=== PATIENT | male | born 1975 | race Caucasian/White ===

== ENCOUNTER 2017-08-14 19:02 | Emergency (ER) | payer SELFPAY ==
[~2017-08-14] VITALS: Ht 188 cm; Wt 85.5 kg
[2017-08-14] VITALS (7 sets, daily range): BP systolic 126–149; BP diastolic 66–94; PULSE 71–75; RESP 18–20; TEMP 98.9; O2SAT 98–100
[2017-08-14] MEDS ORDERED: SODIUM CHLORIDE 0.9% FLUSH 10 ML FLUSH IVF PRN (19:30)
--- NOTE | 2017-08-14 19:35 | PD ---
HPI Chief Complaint: Chest Pain Time Seen by Provider: 19:15 Travel History International Travel<30 days: No Contact w/Intl Traveler<30days: No Traveled to known affect area: No History of Present Illness HPI Patient is a 42 year old male with history of CAD with 1 cardiac stent, presents to the ER with c/o of chest pain. Patient reports that chest pain began 5 days ago and felt like a sharp/stabbing constant sensation to his chest. Reports that pain is left sided and pleuritic in nature. Patient reports that pain is worse with taking deep breaths. 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 Reports that he went to go lift a ladder out of his truck today when all of a sudden began to have worsening pain. Patient reports that the pain was similar to when he had a MA 5 years ago in [place] and had 1 stent placed. reports that the pain today was similar to when he had his stent placed. Patient reports that he is supposed to be taking Plavix as well as aspirin, patient reports that he has not taken Plavix in a while as he had run out of the medication. Patient reports that he just moved to the area one month ago, does not have an established pickling solution maker here. Patient denies history of hypertension or hyperlipidemia, reports that he only takes a baby aspirin per day and no other medications. Patient is a smoker, patient reports that he is a strong family history of coronary artery disease. Patient denies history of PE or DVT, he did drive from [place] to [place] 1 month ago. PFSH Past Medical History Coronary Artery Disease: Yes Diminished Hearing: No Tetanus Vaccination: Unknown Influenza Vaccination: No Past Surgical History Coronary Stent: Yes Social History Alcohol Use: No Tobacco Use: Yes Substance Use: No Allergies-Medications (Allergen,Severity, Reaction): Coded Allergies: No Known Allergies (Verified Allergy, Unknown, 08/14/17) Reported Meds & Prescriptions Reported Meds & Active Scripts Active No Active Prescriptions or Reported Medications Review of Systems General / Constitutional: No: Fever, Chills Eyes: No: Visual changes HENT: No: Headaches Cardiovascular: Positive: Chest Pain or Discomfort, No: Tachycardia, Diaphoresis, Syncope Respiratory: Positive: Shortness of Breath, No: Wheezing Gastrointestinal: No: Abdominal Pain Genitourinary: No: Dysuria Musculoskeletal: No: Pain Skin: No Rash Neurologic: No: Weakness Psychiatric: No: Depression Endocrine: No: Polydipsia Hematologic/Lymphatic: No: Easy Bruising Physical Exam Narrative GENERAL: Moderate distress SKIN: Focused skin assessment warm/dry. HEAD: Atraumatic. Normocephalic. EYES: Pupils equal and round. No scleral icterus. No injection or drainage. ENT: No nasal bleeding or discharge. Mucous membranes pink and moist. NECK: Trachea midline. No JVD. CARDIOVASCULAR: Regular rate and rhythm. No murmur appreciated. RESPIRATORY: No accessory muscle use. Clear to auscultation. Breath sounds equal bilaterally. GASTROINTESTINAL: Abdomen soft, non-tender, nondistended. Hepatic and splenic margins not palpable. MUSCULOSKELETAL: No obvious deformities. No clubbing. No cyanosis. No edema. NEUROLOGICAL: Awake and alert. No obvious cranial nerve deficits. Motor grossly within normal limits. Normal speech. PSYCHIATRIC: Appropriate mood and affect; insight and judgment normal. Data Data Last Documented VS Vital Signs Date Time Temp Pulse Resp B/P (MAP) Pulse Ox O2 Delivery O2 Flow Rate FiO2 08/14/17 20:39 74 18 138/70 (92) 98 08/14/17 19:58 Room Air 08/14/17 19:12 98.9 Orders Orders B-Type Natriuretic Peptide (08/14/17 19:23) Ckmb (Isoenzyme) Profile (08/14/17 19:23) Complete Blood Count With Diff (08/14/17 19:23) Comprehensive Metabolic Panel (08/14/17 19:23) D-Dimer (08/14/17 19:23) Magnesium (Mg) (08/14/17 19:23) Prothrombin Time / Inr (Pt) (08/14/17 19:23) Act Partial Throm Time (Ptt) (08/14/17 19:23) Troponin I (08/14/17 19:23) Lipase (08/14/17 19:23) Chest, Single Ap (08/14/17 19:23) Ecg Monitoring (08/14/17 19:23) Iv Access Insert/Monitor (08/14/17 19:23) Oximetry (08/14/17 19:23) Sodium Chloride 0.9% Flush (Ns Flush) (08/14/17 19:30) Nitroglycerin Sl (Nitrostat Sl) (08/14/17 19:45) Aspirin Chew (Aspirin Chew) (08/14/17 19:45) Electrocardiogram (08/14/17 19:14) Labs Laboratory Tests Test 08/14/17 19:35 White Blood Count 8.9 TH/MM3 Red Blood Count 4.30 MIL/MM3 Hemoglobin 13.4 GM/DL Hematocrit 40.3 % Mean Corpuscular Volume 93.8 FL Mean Corpuscular Hemoglobin 31.3 PG Mean Corpuscular Hemoglobin Concent 33.3 % Red Cell Distribution Width 13.1 % Platelet Count 205 TH/MM3 Mean Platelet Volume 7.2 FL Neutrophils (%) (Auto) 63.7 % Lymphocytes (%) (Auto) 21.9 % Monocytes (%) (Auto) 10.7 % Eosinophils (%) (Auto) 3.4 % Basophils (%) (Auto) 0.3 % Neutrophils # (Auto) 5.8 TH/MM3 Lymphocytes # (Auto) 1.9 TH/MM3 Monocytes # (Auto) 0.9 TH/MM3 Eosinophils # (Auto) 0.3 TH/MM3 Basophils # (Auto) 0.0 TH/MM3 CBC Comment DIFF FINAL Differential Comment Prothrombin Time 9.4 SEC Prothromb Time International Ratio 0.9 RATIO Activated Partial Thromboplast Time 27.8 SEC D-Dimer Quantitative (PE/DVT) 0.67 MG/L FEU Blood Urea Nitrogen 17 MG/DL Creatinine 1.00 MG/DL Random Glucose 132 MG/DL Total Protein 7.8 GM/DL Albumin 3.3 GM/DL Calcium Level 9.3 MG/DL Magnesium Level 2.1 MG/DL Alkaline Phosphatase 111 U/L Aspartate Amino Transf (AST/SGOT) 17 U/L Alanine Aminotransferase (ALT/SGPT) 26 U/L Total Bilirubin 0.3 MG/DL Sodium Level 139 MEQ/L Potassium Level 3.9 MEQ/L Chloride Level 105 MEQ/L Carbon Dioxide Level 27.3 MEQ/L Anion Gap 7 MEQ/L Estimat Glomerular Filtration Rate 83 ML/MIN Total Creatine Kinase 62 U/L Troponin I LESS THAN 0.02 NG/ML B-Type Natriuretic Peptide 8 PG/ML Lipase 133 U/L [facility] Medical Decision Making Medical Screen Exam Complete: Yes Emergency Medical Condition: Yes Medical Record Reviewed: Yes Interpretation(s) EKG at 1914: NSR at 67bpm, qt/qtc: 364/380, no acute st or t wave changes Vital Signs Date Time Temp Pulse Resp B/P (MAP) Pulse Ox O2 Delivery O2 Flow Rate FiO2 08/14/17 19:18 74 18 149/94 (112) 99 Room Air 08/14/17 19:18 74 18 99 Room Air 08/14/17 19:12 98.9 75 20 142/91 (108) 100 Differential Diagnosis Differential includes ACS, arrhythmia, PE, muscle strain, electrolyte abnormality, pneumothorax Narrative Course 42 year old male with history of CAD with 1 cardiac stent, presents to the ER with complaints of chest pain. During the course of the patients emergency department visit, the patients history, examination, and differential diagnosis were reviewed with the patient. The patient was placed on a monitor tech with oximetry and frequent blood pressure monitoring. The patient had an IV access obtained and blood work sent for analysis. The patient was initially provided ASA as well as SL nitro patient with relief of pain after 2 SL nitro The patients laboratory studies were reviewed and remarkable for: Laboratory Tests Test 08/14/17 19:35 White Blood Count 8.9 TH/MM3 (4.0-11.0) Red Blood Count 4.30 MIL/MM3 (4.50-5.90) Hemoglobin 13.4 GM/DL (13.0-17.0) Hematocrit 40.3 % (39.0-51.0) Mean Corpuscular Volume 93.8 FL (80.0-100.0) Mean Corpuscular Hemoglobin 31.3 PG (27.0-34.0) Mean Corpuscular Hemoglobin Concent 33.3 % (32.0-36.0) Red Cell Distribution Width 13.1 % (11.6-17.2) Platelet Count 205 TH/MM3 (150-450) Mean Platelet Volume 7.2 FL (7.0-11.0) Neutrophils (%) (Auto) 63.7 % (16.0-70.0) Lymphocytes (%) (Auto) 21.9 % (9.0-44.0) Monocytes (%) (Auto) 10.7 % (0.0-8.0) Eosinophils (%) (Auto) 3.4 % (0.0-4.0) Basophils (%) (Auto) 0.3 % (0.0-2.0) Neutrophils # (Auto) 5.8 TH/MM3 (1.8-7.7) Lymphocytes # (Auto) 1.9 TH/MM3 (1.0-4.8) Monocytes # (Auto) 0.9 TH/MM3 (0-0.9) Eosinophils # (Auto) 0.3 TH/MM3 (0-0.4) Basophils # (Auto) 0.0 TH/MM3 (0-0.2) CBC Comment DIFF FINAL Differential Comment Prothrombin Time 9.4 SEC (9.8-11.6) Prothromb Time International Ratio 0.9 RATIO Activated Partial Thromboplast Time 27.8 SEC (24.3-30.1) D-Dimer Quantitative (PE/DVT) 0.67 MG/L FEU (0.00-0.50) Blood Urea Nitrogen 17 MG/DL (7-18) Creatinine 1.00 MG/DL (0.60-1.30) Random Glucose 132 MG/DL (74-106) Total Protein 7.8 GM/DL (6.4-8.2) Albumin 3.3 GM/DL (3.4-5.0) Calcium Level 9.3 MG/DL (8.5-10.1) Magnesium Level 2.1 MG/DL (1.5-2.5) Alkaline Phosphatase 111 U/L (45-117) Aspartate Amino Transf (AST/SGOT) 17 U/L (15-37) Alanine Aminotransferase (ALT/SGPT) 26 U/L (12-78) Total Bilirubin 0.3 MG/DL (0.2-1.0) Sodium Level 139 MEQ/L (136-145) Potassium Level 3.9 MEQ/L (3.5-5.1) Chloride Level 105 MEQ/L (98-107) Carbon Dioxide Level 27.3 MEQ/L (21.0-32.0) Anion Gap 7 MEQ/L (5-15) Estimat Glomerular Filtration Rate 83 ML/MIN (>89) Total Creatine Kinase 62 U/L (39-308) Troponin I LESS THAN 0.02 NG/ML B-Type Natriuretic Peptide 8 PG/ML (0-100) Lipase 133 U/L (73-393) Radiology studies were reviewed and remarkable for : Last Impressions Chest X-Ray 08/14/171922 Signed Impressions: Service Date/Time: Monday, August 14, 2017 19:25 - CONCLUSION: No acute disease. Maged Romero MD Patient reports that he does not want to stay in the hospital for admission to the hospital as he has to pick someone up from the airport. He refuses further workup at this time as he reports that he is feeling better. AMA: The risks of leaving against medical advice without further evaluation treatment were discussed with the patient. These risks include cardiac dysfunction, cardiac dysrhythmia, possible heart attack, possible stroke or . The patient indicated understanding of these risks and appeared to have the capacity to make this decision. Diagnosis Primary Impression: Chest pain Qualified Codes: R07.9 - Chest pain, unspecified Additional Impression: Left against medical advice Admitting Information Admitting Physician Requests: Observation Scripts No Active Prescriptions or Reported Meds Disposition: 07 AGAINST MEDICAL ADVICE Rupali Duran DO Aug 14, 2017 19:35
[2017-08-14 19:41] LABS: AUTOMATED NEUTROPHIL # 5.8 TH/MM3 (1.8-7.7); BASOPHIL % 0.3 % (0.0-2.0); EOSINOPHIL # 0.3 TH/MM3 (0-0.4); EOSINOPHIL % 3.4 % (0.0-4.0); HEMATOCRIT 40.3 % (39.0-51.0); HEMOGLOBIN 13.4 GM/DL (13.0-17.0); LYMPH % 21.9 % (9.0-44.0); LYMPHOCYTE # 1.9 TH/MM3 (1.0-4.8); MEAN CELL VOLUME 93.8 FL (80.0-100.0); MEAN CORPUSCULAR HEMOGLOBIN 31.3 PG (27.0-34.0); MEAN CORPUSCULAR HGB CONC 33.3 % (32.0-36.0); MEAN PLATELET VOLUME 7.2 FL (7.0-11.0); MONO % 10.7 % (0.0-8.0); MONOCYTE # 0.9 TH/MM3 (0-0.9); NEUT % 63.7 % (16.0-70.0); PLATELET COUNT 205 TH/MM3 (150-450); RED CELL DISTRIBUTION WIDTH 13.1 % (11.6-17.2); WHITE BLOOD COUNT 8.9 TH/MM3 (4.0-11.0)
[2017-08-14] MEDS ORDERED: ASPIRIN 81 MG CHEW TAB PO ONE (19:45)
[2017-08-14] MEDS: NITROGLYCERIN 0.4 MG SL 25 TABS/BTL SL SCH ×3 (19:48→19:55)
[2017-08-14 20:08] LABS: CHLORIDE 105 MEQ/L (98-107); SODIUM (NA) 139 MEQ/L (136-145)
--- NOTE | 2017-08-14 20:10 | RADRPT ---
EXAM DATE/TIME: 08/14/2017 19:25 [facility] COMPARISON: No previous studies available for comparison. INDICATIONS : Left side chest pain for 2 days, worse upon inspiration. MEDICAL HISTORY : Myocardial infarction. SURGICAL HISTORY : Cardiac stent. ENCOUNTER: Initial ACUITY: 2 days PAIN SCORE: 4/10 LOCATION: Left chest FINDINGS: A single view of the chest demonstrates the lungs to be symmetrically aerated without evidence of mas s, infiltrate or effusion. The cardiomediastinal contours are unremarkable. Osseous structures are intact. CONCLUSION: No acute disease. Maged Romero MD on August 14, 2017 at 20:07 Board Certified Radiologist. This report was verified electronically.
[2017-08-14 20:12] LABS: ALBUMIN 3.3 GM/DL (3.4-5.0); BICARBONATE 27.3 MEQ/L (21.0-32.0); BLOOD UREA NITROGEN 17 MG/DL (7-18); CALCIUM 9.3 MG/DL (8.5-10.1); GLUCOSE,RANDOM 132 MG/DL (74-106); MAGNESIUM 2.1 MG/DL (1.5-2.5)
[2017-08-14 20:15] LABS: ALT (GPT) 26 U/L (12-78); AST (GOT) 17 U/L (15-37); GLOMERULAR FILTRATION RATE 83 ML/MIN (>89)
[2017-08-14 20:16] LABS: TOTAL BILIRUBIN ADULT 0.3 MG/DL (0.2-1.0)
[2017-08-14 20:17] LABS: TOTAL PROTEIN 7.8 GM/DL (6.4-8.2)
[2017-08-14 20:18] LABS: ALKALINE PHOSPHATASE 111 U/L (45-117)
[2017-08-14 20:20] LABS: TROPONIN I LESS THAN 0.02 NG/ML (0.02-0.05)
[2017-08-14 20:43] LABS: INTERNATIONAL NORMALIZED RATIO 0.9 RATIO; PROTHROMBIN TIME - PATIENT 9.4 SEC (9.8-11.6)
[2017-08-14 20:47] LABS: D-DIMER 0.67 MG/L FEU (0.00-0.50)
--- NOTE | 2017-08-14 21:35 | EKG ---
Date Performed: 08/14/2017 Time Performed: 19:14:27 PTAGE: 42 years EKG: Sinus rhythm NORMAL ECG NO PREVIOUS TRACING DOCTOR: Wilfrido Tomlin Interpretating Date/Time 08/14/2017 21:34:11
== END 2017-08-14 20:40 | disposition left against medical advice (07) ==
LOC: PHED 19:02
DX: R07.9 Chest pain, unspecified (principal); R06.02 Shortness of breath; I25.10 Atherosclerotic heart disease of native coronary artery without angina pectoris; I25.2 Old myocardial infarction; F17.200 Nicotine dependence, unspecified, uncomplicated; Z95.5 Presence of coronary angioplasty implant and graft; Z53.20 Procedure and treatment not carried out because of patient's decision for unspecified reasons
CPT/HCPCS: 71045; 80053; 82550; 83690; 83735; 83880; 84484; 85025; 85379; 85610; 85730; 93005; 99285